=== PATIENT | male | born 1975 | race Caucasian/White ===

== ENCOUNTER 2017-03-19 13:45 | Emergency (ER) | payer OTHER ==
[~2017-03-19] VITALS: Ht 188 cm; Wt 137.3 kg
[~2017-03-19 13:45] MED LIST: AMLODIPINE BESYL5 MG PO; DOLOPHINE HCL5 MG PO; LIDOCAINE700 MG TD; LOSARTAN POTAS100 MG PO; METAXALONE800 MG PO; NAPROXEN500 MG PO; NO HOME MEDS; NOHOMEMEDS; OXYCODONE HCL5 MG PO; ZOFRAN4 MG PO
[2017-03-19] MEDS ORDERED: ULTRAM50 MG PO (16:43)
[2017-03-19 16:59] VITALS: BP 167/119
== END 2017-03-19 17:00 | disposition home or self-care (01) ==
LOC: EME 13:45
DX: S39.012A Strain of muscle, fascia and tendon of lower back, initial encounter (principal); X58.XXXA Exposure to other specified factors, initial encounter; M79.604 Pain in right leg; M79.605 Pain in left leg; G89.29 Other chronic pain; Z98.1 Arthrodesis status
CPT/HCPCS: 72100; 99281; 99283

== ENCOUNTER 2017-04-05 19:48 | Emergency (ER) | payer OTHER ==
[~2017-04-05] VITALS: Ht 157.5 cm; Wt 115.2 kg
[~2017-04-05 19:48] MED LIST changes: +ULTRAM50 MG PO
[2017-04-05] MEDS ORDERED: DELTASONE20 M1 PO (20:16)
[2017-04-05] MEDS ORDERED: NORCO 5/3251 TABLET PO (20:16)
[2017-04-05 20:26] VITALS: BP 144/89
== END 2017-04-05 20:27 | disposition home or self-care (01) ==
LOC: EME 19:48
DX: M54.41 Lumbago with sciatica, right side (principal); M54.42 Lumbago with sciatica, left side; G89.29 Other chronic pain; Z79.891 Long term (current) use of opiate analgesic; F17.200 Nicotine dependence, unspecified, uncomplicated
CPT/HCPCS: 99281; 99283

== ENCOUNTER 2017-04-07 02:29 | Emergency (ER) | payer OTHER ==
[~2017-04-07] VITALS: Ht 188 cm; Wt 141.3 kg
[~2017-04-07 02:29] MED LIST changes: +DELTASONE20 M1 PO; +NORCO 5/3251 TABLET PO
[2017-04-07] MEDS ORDERED: ULTRAM50 MG PO (02:52)
[2017-04-07 03:24] VITALS: BP 169/100
== END 2017-04-07 03:37 | disposition home or self-care (01) ==
LOC: EME 02:29
DX: M54.9 Dorsalgia, unspecified (principal); G89.29 Other chronic pain
CPT/HCPCS: 99281; 99283

== ENCOUNTER 2017-04-11 13:36 | Emergency (ER) | payer OTHER ==
[~2017-04-11] VITALS: Ht 188 cm; Wt 140.5 kg
[2017-04-11 14:15] LABS: ADD MIUA? NO; BILIRUBIN NEGATIVE; BLOOD NEGATIVE; COLOR YELLOW ((YELLOW)); GLUCOSE (STRIP) NEGATIVE; KETONES NEGATIVE; LEUKOCYTES NEGATIVE; NITRITE NEGATIVE; PROTEIN (STRIP) 30; SPECIFIC GRAVITY 1.019 (1.000-1.030); UCUL ADDED? NO; UROBILINOGEN 0.2 MG/DL (0.2-1.0)
[2017-04-11 14:31] LABS: HEMATOCRIT 46.1 % (38.0-50.0); MCH 28.5 PG (29.0-34.0); MCHC 33.2 G/DL (30.0-36.0); MEAN PLAT.VOLUME 10.2 uM^3 (9.0-12.4); PLATELET COUNT 314 K/uL (156-360); RBC DIS.WIDTH-CV 13.2 % (11.8-14.6); RBC DIS.WIDTH-SD 41.1 % (39-53); RED BLOOD COUNT 5.36 M/uL (4.00-5.50); WHITE BLOOD COUNT 9.4 K/uL (4.1-10.2)
[2017-04-11 14:43] LABS: CHLORIDE 106 mEq/L (99-109); POTASSIUM 3.9 mEq/L (3.7-5.4); SODIUM 141 mEq/L (136-147)
[2017-04-11 14:45] LABS: GLUCOSE 125 mg/dL (70-99)
[2017-04-11 14:47] LABS: ANION GAP 13 MEQ/L (2-14); TOTAL BILIRUBIN 0.6 mg/dL (0.0-1.0)
[2017-04-11 14:49] LABS: ALKALINE PHOSPHATASE 87 IU/L (3-129); GFR ESTIMATE (CALCULATED) > 59 mL/min/
[2017-04-11 14:50] LABS: UREA NITROGEN (BUN) 16 mg/dL (9-23)
[2017-04-11 15:21] LABS: LIPASE 10 U/L (1.0-51.0)
[2017-04-11] MEDS ORDERED: BENTYL20 MG PO (16:02)
[2017-04-11] MEDS ORDERED: CITRATE OF MAG296 ML PO (16:02)
[2017-04-11 16:23] VITALS: BP 181/114
== END 2017-04-11 16:25 | disposition home or self-care (01) ==
LOC: EME 13:36
DX: R10.32 Left lower quadrant pain (principal); M54.89 Other dorsalgia; I10 Essential (primary) hypertension
CPT/HCPCS: 74176; 80053; 81003; 83690; 85027; 99281; 99284; J3010

== ENCOUNTER 2017-04-13 15:52 | Emergency (ER) | payer OTHER ==
[~2017-04-13] VITALS: Ht 188 cm; Wt 139.4 kg
[~2017-04-13 15:52] MED LIST changes: +BENTYL20 MG PO; +CITRATE OF MAG296 ML PO
[2017-04-13 17:01] LABS: MCH 28.7 PG (29.0-34.0); MCHC 33.8 G/DL (30.0-36.0); MCV 85.1 FL (86-99); MEAN PLAT.VOLUME 9.8 uM^3 (9.0-12.4); PLATELET COUNT 290 K/uL (156-360); RBC DIS.WIDTH-CV 13.2 % (11.8-14.6); RBC DIS.WIDTH-SD 40.5 % (39-53); RED BLOOD COUNT 5.29 M/uL (4.00-5.50); WHITE BLOOD COUNT 8.2 K/uL (4.1-10.2)
[2017-04-13 17:10] LABS: CHLORIDE 106 mEq/L (99-109); SODIUM 139 mEq/L (136-147)
[2017-04-13 17:13] LABS: GLUCOSE 109 mg/dL (70-99)
[2017-04-13 17:14] LABS: ANION GAP 9 MEQ/L (2-14)
[2017-04-13 17:15] LABS: TOTAL BILIRUBIN 0.7 mg/dL (0.0-1.0)
[2017-04-13 17:16] LABS: ALKALINE PHOSPHATASE 92 IU/L (3-129); GFR ESTIMATE (CALCULATED) > 59 mL/min/
[2017-04-13 17:17] LABS: UREA NITROGEN (BUN) 13 mg/dL (9-23)
[2017-04-13 17:20] LABS: LIPASE 33 U/L (1.0-51.0)
[2017-04-13 18:29] LABS: ADD MIUA? NO; BILIRUBIN NEGATIVE; BLOOD NEGATIVE; COLOR YELLOW ((YELLOW)); GLUCOSE (STRIP) NEGATIVE; KETONES NEGATIVE; LEUKOCYTES NEGATIVE; NITRITE NEGATIVE; PROTEIN (STRIP) NEGATIVE; SPECIFIC GRAVITY 1.016 (1.000-1.030); UCUL ADDED? NO; UROBILINOGEN 0.2 MG/DL (0.2-1.0)
[2017-04-13] MEDS ORDERED: TRAMADOL HCL50 MG PO (19:54)
[2017-04-13] MEDS ORDERED: NORVASC10 MG PO (19:54)
[2017-04-13 20:11] VITALS: BP 163/10
== END 2017-04-13 20:12 | disposition home or self-care (01) ==
LOC: EME 15:52
DX: R10.30 Lower abdominal pain, unspecified (principal); I10 Essential (primary) hypertension
CPT/HCPCS: 74020; 80053; 81003; 83690; 85027; 99281; 99285; J1885; J7030

== ENCOUNTER 2017-04-24 20:27 | Emergency (ER) | payer OTHER ==
[~2017-04-24] VITALS: Ht 188 cm; Wt 137.3 kg
[~2017-04-24 20:27] MED LIST changes: +NORVASC10 MG PO; +TRAMADOL HCL50 MG PO
[2017-04-24] MEDS ORDERED: ULTRAM50 MG PO (21:16)
[2017-04-24 21:36] VITALS: BP 145/88
== END 2017-04-24 21:37 | disposition home or self-care (01) ==
LOC: EME 20:27
DX: M54.41 Lumbago with sciatica, right side (principal); M54.42 Lumbago with sciatica, left side
CPT/HCPCS: 99281; 99283

== ENCOUNTER 2017-05-08 15:56 | Emergency (ER) | payer OTHER ==
[~2017-05-08] VITALS: Ht 188 cm; Wt 138.7 kg
[2017-05-08] MEDS ORDERED: LIDODERM 5% P1 PATCH TD (18:47)
[2017-05-08] MEDS ORDERED: INDOMETHACIN50 MG PO (18:47)
[2017-05-08] MEDS ORDERED: FLEXERIL10 MG PO (18:47)
[2017-05-08 19:32] VITALS: BP 171/105
== END 2017-05-08 19:40 | disposition home or self-care (01) ==
LOC: EME 15:56
DX: M54.5 Low back pain (principal); G89.29 Other chronic pain; Z79.891 Long term (current) use of opiate analgesic; F17.200 Nicotine dependence, unspecified, uncomplicated
CPT/HCPCS: 99281; 99282

== ENCOUNTER 2017-05-15 21:40 | Emergency (ER) | payer OTHER ==
[~2017-05-15] VITALS: Ht 188 cm; Wt 136.0 kg
[~2017-05-15 21:40] MED LIST changes: +FLEXERIL10 MG PO; +INDOMETHACIN50 MG PO; +LIDODERM 5% P1 PATCH TD
[2017-05-15] MEDS ORDERED: ULTRAM50 MG PO (23:59)
[2017-05-16 00:11] VITALS: BP 160/114
== END 2017-05-16 00:38 | disposition home or self-care (01) ==
LOC: EME 21:40
DX: M54.5 Low back pain (principal); I10 Essential (primary) hypertension; G89.29 Other chronic pain; Z88.8 Allergy status to other drugs, medicaments and biological substances
CPT/HCPCS: 72100; 99281; 99283

== ENCOUNTER 2017-06-14 15:51 | Emergency (ER) | payer OTHER ==
[~2017-06-14] VITALS: Ht 188 cm; Wt 137.0 kg
[2017-06-14] MEDS ORDERED: VICODIN 5-3001 EACH PO (17:56)
[2017-06-14] MEDS ORDERED: LISINOPRIL10 MG PO (18:17)
[2017-06-14 18:31] VITALS: BP 157/110
== END 2017-06-14 18:31 | disposition home or self-care (01) ==
LOC: EME 15:51
PROC: 2W3CX1Z Immobilization of Right Lower Arm using Splint (ICD-10-PCS; principal; 2017-06-14)
DX: S62.91XA Unspecified fracture of right hand, initial encounter for closed fracture (principal); M54.5 Low back pain; W18.30XA Fall on same level, unspecified, initial encounter; I10 Essential (primary) hypertension
CPT/HCPCS: 73130; 99281; 99284

== ENCOUNTER 2017-07-05 11:02 | Emergency (ER) | payer SELFPAY ==
[~2017-07-05] VITALS: Ht 188 cm; Wt 130.2 kg
[~2017-07-05 11:02] MED LIST changes: +LISINOPRIL10 MG PO; +VICODIN 5-3001 EACH PO
[2017-07-05] MEDS ORDERED: MOTRIN600 MG PO (12:43)
[2017-07-05] MEDS ORDERED: PREDNISONE50 MG PO (12:43)
[2017-07-05] MEDS ORDERED: TRAMADOL HCL50 MG PO (12:43)
[2017-07-05 13:01] VITALS: BP 141/94
== END 2017-07-05 13:03 | disposition home or self-care (01) ==
LOC: EME 11:02
DX: M54.5 Low back pain (principal); R26.89 Other abnormalities of gait and mobility
CPT/HCPCS: 99281; 99284

== ENCOUNTER 2017-07-13 10:06 | Emergency (ER) | payer SELFPAY ==
[~2017-07-13] VITALS: Ht 188 cm; Wt 130.6 kg
[~2017-07-13 10:06] MED LIST changes: +MOTRIN600 MG PO; +PREDNISONE50 MG PO
[2017-07-13 10:24] VITALS: BP 157/98
[2017-07-13] MEDS ORDERED: NAPROSYN500 MG PO (11:04)
[2017-07-13] MEDS ORDERED: ULTRAM50 MG PO (11:04)
[2017-07-13] MEDS ORDERED: FLEXERIL10 MG PO (11:04)
[2017-07-15] MEDS ORDERED: SKELAXIN800 MG PO (11:39)
[2017-07-15] MEDS ORDERED: NORCO 5/3251 TABLET PO (11:39)
[2017-07-19] MEDS ORDERED: MEDROL DOSEPAK4 MG PO (19:49)
[2017-07-19] MEDS ORDERED: VALIUM5 MG PO (19:49)
[2017-07-19] MEDS ORDERED: PERCOCET 5/31 TABLET PO (19:49)
[2017-07-19] MEDS ORDERED: ULTRAM50 MG PO (19:57)
== END 2017-07-13 11:28 | disposition home or self-care (01) ==
LOC: EME 10:06
DX: M54.31 Sciatica, right side (principal); I10 Essential (primary) hypertension
CPT/HCPCS: 99281; 99284

== ENCOUNTER 2017-07-16 10:48 | Emergency (ER) | payer SELFPAY ==
[~2017-07-16] VITALS: Ht 188 cm; Wt 128.7 kg
[~2017-07-16 10:48] MED LIST changes: +NAPROSYN500 MG PO; +SKELAXIN800 MG PO
[2017-07-16 11:10] VITALS: BP 119/93
[2017-07-19] MEDS ORDERED: PERCOCET 5/31 TABLET PO (19:49)
[2017-07-19] MEDS ORDERED: MEDROL DOSEPAK4 MG PO (19:49)
[2017-07-19] MEDS ORDERED: VALIUM5 MG PO (19:49)
[2017-07-19] MEDS ORDERED: ULTRAM50 MG PO (19:57)
== END 2017-07-16 12:05 | disposition home or self-care (01) ==
LOC: EME 10:48
DX: G89.29 Other chronic pain (principal); M54.5 Low back pain
CPT/HCPCS: 99281; 99284

== ENCOUNTER 2017-08-05 14:58 | Emergency (ER) | payer OTHER ==
[~2017-08-05] VITALS: Ht 188 cm; Wt 118.2 kg
[~2017-08-05 14:58] MED LIST changes: +BACLOFEN10 MG PO; +MEDROL DOSEPAK4 MG PO; +PERCOCET 5/31 TABLET PO; +PREDNISONE10 MG PO; +VALIUM5 MG PO
[2017-08-05] MEDS ORDERED: NAPROSYN500 MG PO (16:55)
[2017-08-05 17:14] VITALS: BP 156/95
== END 2017-08-05 17:14 | disposition home or self-care (01) ==
LOC: EME → EDBD 14:58 → EME 17:14
DX: S83.91XA Sprain of unspecified site of right knee, initial encounter (principal); W01.0XXA Fall on same level from slipping, tripping and stumbling without subsequent striking against object, initial encounter; Y92.480 Sidewalk as the place of occurrence of the external cause; Y93.01 Activity, walking, marching and hiking; I10 Essential (primary) hypertension; R56.9 Unspecified convulsions
CPT/HCPCS: 73564

== ENCOUNTER 2017-08-06 08:26 | Emergency (ER) | payer OTHER ==
[~2017-08-06] VITALS: Ht 188 cm; Wt 126.1 kg
[2017-08-06 08:45] VITALS: BP 125/100
== END 2017-08-06 09:28 | disposition home or self-care (01) ==
LOC: EME 08:26
DX: S83.91XA Sprain of unspecified site of right knee, initial encounter (principal); X58.XXXA Exposure to other specified factors, initial encounter
CPT/HCPCS: 99281; 99283

== ENCOUNTER 2017-08-11 19:02 | Emergency (ER) | payer OTHER ==
[~2017-08-11] VITALS: Ht 188 cm; Wt 127.0 kg
[2017-08-11] MEDS ORDERED: ULTRAM50 MG PO (22:27)
[2017-08-11] MEDS ORDERED: ROBAXIN750 MG PO (22:27)
[2017-08-11] MEDS ORDERED: MOTRIN600 MG PO (22:27)
[2017-08-11 22:46] VITALS: BP 148/87
== END 2017-08-11 22:47 | disposition home or self-care (01) ==
LOC: EME 19:02
DX: G89.29 Other chronic pain (principal); M54.9 Dorsalgia, unspecified; M62.830 Muscle spasm of back; R26.2 Difficulty in walking, not elsewhere classified; Z88.8 Allergy status to other drugs, medicaments and biological substances
CPT/HCPCS: 99281; 99283; J1885

== ENCOUNTER 2017-08-17 10:37 | Emergency (ER) | payer OTHER ==
[~2017-08-17] VITALS: Ht 188 cm; Wt 124.1 kg
[~2017-08-17 10:37] MED LIST changes: +ROBAXIN750 MG PO
[2017-08-17] MEDS ORDERED: MEDROL DOSEPAK4 MG PO (13:55)
[2017-08-17 14:11] VITALS: BP 151/101
== END 2017-08-17 14:23 | disposition home or self-care (01) ==
LOC: EME 10:37
DX: M54.5 Low back pain (principal); E11.9 Type 2 diabetes mellitus without complications
CPT/HCPCS: 99281; 99284; J1885

== ENCOUNTER 2017-09-09 17:02 | Emergency (ER) | payer OTHER ==
[~2017-09-09] VITALS: Ht 188 cm; Wt 122.1 kg
[2017-09-09 19:04] LABS: POINT-OF-CARE METER ID UU13113800
[2017-09-09] MEDS ORDERED: TRAMADOL HCL50 MG PO (19:50)
[2017-09-09 20:18] VITALS: BP 151/91
== END 2017-09-09 20:21 | disposition home or self-care (01) ==
LOC: EME 17:02
PROVIDERS: Physician Assistant
DX: S91.302A Unspecified open wound, left foot, initial encounter (principal); Z88.8 Allergy status to other drugs, medicaments and biological substances
CPT/HCPCS: 82948; 99281; 99283

== ENCOUNTER 2017-09-11 13:43 | Emergency (ER) | payer OTHER ==
[~2017-09-11] VITALS: Ht 188 cm; Wt 120.9 kg
[2017-09-11] MEDS ORDERED: PERCOCET 5/31 TABLET PO (15:04)
[2017-09-11] MEDS ORDERED: AUGMENTIN500 MG PO ×2 (15:04→15:09)
[2017-09-11 15:35] VITALS: BP 156/106
== END 2017-09-11 15:36 | disposition home or self-care (01) ==
LOC: EME 13:43
DX: L03.116 Cellulitis of left lower limb (principal); Z88.8 Allergy status to other drugs, medicaments and biological substances

== ENCOUNTER 2017-09-27 08:55 | Emergency (ER) | payer OTHER ==
[~2017-09-27] VITALS: Ht 188 cm; Wt 118.1 kg
[~2017-09-27 08:55] MED LIST changes: +AUGMENTIN500 MG PO
[2017-09-27 08:58] VITALS: BP 158/99
[2017-09-27 09:35] LABS: HEMATOCRIT 42.2 % (38.0-50.0); HEMOGLOBIN 14.1 G/DL (12.5-16.6); MCH 29.1 PG (29.0-34.0); MCHC 33.4 G/DL (30.0-36.0); MCV 87.2 FL (86-99); PLATELET COUNT 290 K/uL (156-360); RBC DIS.WIDTH-CV 13.2 % (11.8-14.6); RBC DIS.WIDTH-SD 42.2 % (39-53); RED BLOOD COUNT 4.84 M/uL (4.00-5.50); WHITE BLOOD COUNT 7.2 K/uL (4.1-10.2)
[2017-09-27 10:55] LABS: CHLORIDE 102 MEQ/L (99-109); CREATININE 1.2 MG/DL (0.6-1.3); GFR ESTIMATE (CALCULATED) > 59 mL/min/ (58.99-99999); GLUCOSE 103 mg/dL (70-99); POTASSIUM 3.6 MEQ/L (3.7-5.4); SODIUM 139 MEQ/L (136-147); UREA NITROGEN (BUN) 15 mg/dL (9-23)
[2017-09-27] MEDS ORDERED: MOTRIN800 MG PO (11:24)
[2017-09-27] MEDS ORDERED: ANTIVERT25 MG PO (11:24)
== END 2017-09-27 11:39 | disposition home or self-care (01) ==
LOC: EME 08:55
DX: R42 Dizziness and giddiness (principal)
CPT/HCPCS: 70450; 71046; 80048; 82948; 85027; 93005; 99281; 99284

== ENCOUNTER 2017-10-04 20:58 | Emergency (ER) | payer OTHER ==
[~2017-10-04] VITALS: Ht 188 cm; Wt 123.2 kg
[~2017-10-04 20:58] MED LIST changes: +ANTIVERT25 MG PO; +MOTRIN800 MG PO
[2017-10-04] MEDS ORDERED: LIDOCAINE20 MG/1 M5 PO (23:22)
[2017-10-04] MEDS ORDERED: AUGMENTIN875 MG PO (23:22)
[2017-10-04] MEDS ORDERED: INDOCIN50 MG PO (23:22)
[2017-10-04 23:37] VITALS: BP 158/86
== END 2017-10-04 23:38 | disposition home or self-care (01) ==
LOC: EME 20:58
DX: K02.9 Dental caries, unspecified (principal); K03.81 Cracked tooth
CPT/HCPCS: 99281; 99284

== ENCOUNTER 2017-10-13 17:23 | Emergency (ER) | payer OTHER ==
[~2017-10-13] VITALS: Ht 188 cm; Wt 122.0 kg
[~2017-10-13 17:23] MED LIST changes: +AUGMENTIN875 MG PO; +INDOCIN50 MG PO; +LIDOCAINE20 MG/1 M5 PO
[2017-10-13 21:15] VITALS: BP 152/97
== END 2017-10-13 21:15 | disposition home or self-care (01) ==
LOC: RME 17:23 → EME 17:23 → RME 21:15
DX: S02.5XXA Fracture of tooth (traumatic), initial encounter for closed fracture (principal); M54.5 Low back pain; G89.29 Other chronic pain; Z88.5 Allergy status to narcotic agent; Z88.8 Allergy status to other drugs, medicaments and biological substances
CPT/HCPCS: 99281; 99283

== ENCOUNTER 2017-10-14 12:48 | Emergency (ER) | payer OTHER ==
[~2017-10-14] VITALS: Ht 188 cm; Wt 120.6 kg
[2017-10-14 19:25] VITALS: BP 141/88
== END 2017-10-14 19:38 | disposition home or self-care (01) ==
LOC: EME 12:48
DX: K08.89 Other specified disorders of teeth and supporting structures (principal); K03.81 Cracked tooth; Z88.5 Allergy status to narcotic agent
CPT/HCPCS: 99281; 99283

== ENCOUNTER 2017-10-15 13:08 | Emergency (ER) | payer OTHER ==
[~2017-10-15] VITALS: Ht 188 cm; Wt 121.0 kg
[2017-10-15 15:37] VITALS: BP 128/67
== END 2017-10-15 15:39 | disposition home or self-care (01) ==
LOC: EME 13:08
DX: K08.89 Other specified disorders of teeth and supporting structures (principal); I10 Essential (primary) hypertension; R56.9 Unspecified convulsions; Z88.8 Allergy status to other drugs, medicaments and biological substances; Z88.5 Allergy status to narcotic agent
CPT/HCPCS: 99281; 99284

== ENCOUNTER 2017-12-01 21:31 | Emergency (ER) | payer OTHER ==
[~2017-12-01] VITALS: Ht 188 cm; Wt 125.2 kg
[2017-12-01] MEDS ORDERED: KEFLEX500 MG PO (23:22)
[2017-12-01] MEDS ORDERED: NORCO 5/3251 TABLET PO (23:22)
[2017-12-01 23:33] VITALS: BP 162/102
== END 2017-12-01 23:58 | disposition home or self-care (01) ==
LOC: EME 21:31
PROC: 2W38X1Z Immobilization of Right Upper Extremity using Splint (ICD-10-PCS; principal; 2017-12-01)
DX: S42.401A Unspecified fracture of lower end of right humerus, initial encounter for closed fracture (principal); S60.221A Contusion of right hand, initial encounter; I10 Essential (primary) hypertension; W23.0XXA Caught, crushed, jammed, or pinched between moving objects, initial encounter; Z88.5 Allergy status to narcotic agent
CPT/HCPCS: 73080; 73110; 99281; 99284

== ENCOUNTER 2017-12-08 07:02 | Emergency (ER) | payer OTHER ==
[~2017-12-08] VITALS: Ht 188 cm; Wt 121.5 kg
[~2017-12-08 07:02] MED LIST changes: +KEFLEX500 MG PO
[2017-12-08 07:04] VITALS: BP 165/104
[2017-12-08] MEDS ORDERED: FLEXERIL10 MG PO (07:53)
[2017-12-08] MEDS ORDERED: LIDODERM 5% P1 PATCH TD (07:53)
[2017-12-08] MEDS ORDERED: NAPROSYN500 MG PO (07:53)
== END 2017-12-08 08:16 | disposition home or self-care (01) ==
LOC: EME 07:02
DX: M54.42 Lumbago with sciatica, left side (principal); G89.29 Other chronic pain; S62.633A Displaced fracture of distal phalanx of left middle finger, initial encounter for closed fracture; S60.132A Contusion of left middle finger with damage to nail, initial encounter; W23.0XXA Caught, crushed, jammed, or pinched between moving objects, initial encounter; Z88.5 Allergy status to narcotic agent
CPT/HCPCS: 73130; 99281; 99283